=== PATIENT | male | born 1985 | race Caucasian/White ===

== ENCOUNTER 2018-03-26 13:37 | Emergency (ER) | payer MEDICAID ==
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
[2018-03-26] MEDS ORDERED: IBUPROFEN 800 MG TAB PO ONE (14:38)
[2018-03-26 14:47] VITALS: BP 150/84
== END 2018-03-26 14:46 | disposition home or self-care (01) ==
DX: S93.601A Unspecified sprain of right foot, initial encounter (principal); V18.0XXA Pedal cycle driver injured in noncollision transport accident in nontraffic accident, initial encounter; Y92.480 Sidewalk as the place of occurrence of the external cause; Z59.0 Homelessness
CPT/HCPCS: L4386